=== PATIENT | male | born 1955 | race Caucasian/White ===

== ENCOUNTER → 2017-07-29 | Outpatient (CLI) | payer OTHER ==
[2017-07-29 09:01] LABS: ADD MAN DIFF? NO
[2017-07-29 09:23] LABS: ALBUMIN 3.8 g/dL (3.4-5.0); ANION GAP 5 (6-14); BLOOD UREA NITROGEN 12 mg/dL (8-26); CARBON DIOXIDE 32 mmol/L (21-32); CHLORIDE 97 mmol/L (98-107); CREATININE 0.9 mg/dL (0.7-1.3); GLUCOSE 126 mg/dL (70-99); POTASSIUM 3.7 mmol/L (3.5-5.1); SODIUM 134 mmol/L (136-145)
[2017-07-29 09:29] LABS: BASO % 1 % (0-3); EOS # 0.2 x10^3/uL (0.0-0.7); EOS % 4 % (0-3); HEMATOCRIT 42.5 % (39.0-53.0); HEMOGLOBIN 14.7 g/dL (13.0-17.5); LYMPH # 0.8 x10^3/uL (1.0-4.8); LYMPH % 18 % (24-48); MEAN CORPUSCULAR HEMOGLOBIN 33 pg (25-35); MEAN CORPUSCULAR HGB CONC 35 g/dL (31-37); MEAN CORPUSCULAR VOLUME 96 fL (79-100); MONO # 0.7 x10^3/uL (0.0-1.1); MONO % 15 % (0-9); NEUT # 2.9 x10^3uL (1.8-7.7); NEUT % 63 % (31-73); PLATELET COUNT 229 x10^3/uL (140-400); RED BLOOD COUNT 4.44 x10^6/uL (4.30-5.70); RED CELL DISTRIBUTION WIDTH 12.9 % (11.5-14.5); WHITE BLOOD COUNT 4.6 x10^3/uL (4.0-11.0)
[2017-07-29 09:48] LABS: PARTIAL THROMBOPLASTIN TIME 26 SEC (24-38); PROTHROMBIN TIME PATIENT 12.9 SEC (11.7-14.0)
[2017-07-29 10:04] LABS: BILIRUBIN,URINE NEGATIVE (NEG); CLARITY,URINE CLEAR; COLOR,URINE YELLOW; GLUCOSE,URINE NEGATIVE (NEG); NITRITE,URINE NEGATIVE (NEG); PROTEIN,URINE NEGATIVE (NEG-TRACE)
[2017-07-29 10:38] LABS: RBC,URINE OCC /HPF (0-2); WBC,URINE 0 /HPF (0-4)
[2017-07-29 10:39] LABS: BACTERIA,URINE 0 /HPF (0-FEW); SQUAMOUS EPITHELIAL CELL,UR FEW /LPF
[2017-07-29 11:29] LABS: SEDIMENTATION RATE 3 (0-15)
[2017-07-30 06:18] LABS: MRSA BY PCR Negative (Negative)
== END | disposition home or self-care (01) ==
LOC: SURGPAT 14:31
DX: Z01.818 Encounter for other preprocedural examination (principal); I10 Essential (primary) hypertension; R94.31 Abnormal electrocardiogram [ECG] [EKG]
CPT/HCPCS: 36415; 71046; 80048; 81001; 82040; 82306; 85025; 85610; 85651; 85730; 87641; 93005

== ENCOUNTER 2017-08-13 05:50 | Inpatient (IN) | payer OTHER ==
[2017-08-13] MEDS ORDERED: MELOXICAM 7.5 MG TABLET PO (06:00)
[2017-08-13] MEDS: IV RINGERS,LACTATED 1000ML 1,000 ML IV ×2 (06:41→10:10)
[2017-08-13] MEDS: HYDROcodone/APAP 7.5/325MG 1 TAB TABLET PO (06:42)
[2017-08-13] MEDS ORDERED: LIDOCAINE 1% PF 2 ML VIAL. ID (07:00)
[2017-08-13] MEDS ORDERED: fentaNYL PF VIAL 100 MCG/2 ML VIAL IV ×4 (07:00→10:30)
[2017-08-13] MEDS ORDERED: ONDANSETRON PF 4 MG/2 ML VIAL. IV (07:00)
[2017-08-13] MEDS ORDERED: FAMOTIDINE 20 MG/2 ML VIAL (07:08)
[2017-08-13] MEDS ORDERED: ONDANSETRON PF 4 MG/2 ML VIAL. (07:08)
[2017-08-13] MEDS ORDERED: PROPOFOL 20 ML IV (07:08)
[2017-08-13] MEDS ORDERED: DEXAMETHASONE SOD PHOS 20 MG/5 ML VIAL. (07:08)
[2017-08-13] MEDS ORDERED: LIDOCAINE 1% PF 5 ML VIAL. (07:08)
[2017-08-13] MEDS ORDERED: ROCURONIUM 50 MG/5 ML VIAL. (07:08)
[2017-08-13] MEDS ORDERED: fentaNYL PF VIAL 100 MCG/2 ML VIAL ×2 (07:09→08:08)
[2017-08-13] MEDS ORDERED: MIDAZOLAM HCL/PF 2 MG/2 ML VIAL. (07:09)
[2017-08-13] MEDS: TRANEXAMIC ACID 1,000 MG in IV NS 50ML -- 1ST BAG INJ (07:47)
[2017-08-13] MEDS ORDERED: ePHEDrine PF IN SALINE 50 MG/5 ML DISP.SYRIN IV (07:51)
[2017-08-13] MEDS: VANCOMYCIN 1 GM VIAL. (07:59)
[2017-08-13] MEDS: MORPHINE SULFATE 5 MG, KETOROLAC 30 MG, ROPIVacaine 0.5% PF 60 ML, EPINEPHrine 0.5 MG i... INT ART (07:59)
[2017-08-13] MEDS: TOBRAMYCIN POWDER 1.2 GM VIAL. (07:59)
[2017-08-13] MEDS: TRANEXAMIC ACID 1,000 MG in IV NS 50ML -- 2ND BAG INJ (08:00)
[2017-08-13] MEDS ORDERED: GLYCOPYRROLATE 1 MG/5 ML VIAL. (09:23)
[2017-08-13] MEDS ORDERED: NEOSTIGMINE METHYLSULFATE 5 MG/5 ML SYRINGE. (09:23)
[2017-08-13] MEDS ORDERED: SEVOFLURANE > 120 MINUTES. IH (09:32)
[2017-08-13] MEDS: MORPHINE SULFATE 4 MG/ML DISP.SYRIN. IV ×3 (10:09→10:51)
[2017-08-13] MEDS: PROCHLORPERAZINE 10 MG/2 ML VIAL. IV (10:09)
[2017-08-13] MEDS: IV DEXTROSE 5 %-0.45 % NACL 1,000 ML IV (10:19)
[2017-08-13] MEDS ORDERED: diphenhydrAMINE 50 MG/ML VIAL IV (10:30)
[2017-08-13] MEDS ORDERED: HYDROcodone/APAP 10/325 1 TAB TABLET PO (10:30)
[2017-08-13] MEDS ORDERED: HYDROcodone/APAP 7.5/325MG 1 TAB TABLET PO (10:30)
[2017-08-13] MEDS ORDERED: ZOLPIDEM 5 MG TABLET. PO (10:30)
[2017-08-13] MEDS ORDERED: CALCIUM CARBONATE 500 MG TAB.CHEW PO (10:30)
[2017-08-13] MEDS ORDERED: ACETAMINOPHEN 325 MG TABLET. PO (10:30)
[2017-08-13] MEDS ORDERED: DEXTROSE 50% 25 GM / 50ML DISP.SYRIN. IV (10:30)
[2017-08-13] MEDS ORDERED: MORPHINE SULFATE 4 MG/ML DISP.SYRIN. IV ×3 (10:30)
[2017-08-13] MEDS ORDERED: PROCHLORPERAZINE 10 MG/2 ML VIAL. IV (10:30)
[2017-08-13] MEDS ORDERED: traMADol 50 MG TABLET PO ×2 (10:30)
[2017-08-13] MEDS ORDERED: METOCLOPRAMIDE HCL 10 MG/2 ML VIAL. IV (10:30)
[2017-08-13] MEDS ORDERED: MORPHINE SULFATE 10 MG/ML VIAL. IV (10:30)
[2017-08-13] MEDS ORDERED: PROCHLORPERAZINE 5 MG TABLET. PO (10:30)
[2017-08-13] MEDS ORDERED: oxyCODONE/APAP 5/325 1 TAB TABLET PO (10:30)
[2017-08-13] MEDS ORDERED: NON FORMULARY ITEM (Tadalafil (Cialis) 5 MG) PO (10:30)
[2017-08-13] MEDS ORDERED: 0.9 % SODIUM CHLORIDE 10 ML DISP.SYRIN. IV (10:30)
[2017-08-13] MEDS: LOSARTAN POTASSIUM 50 MG TABLET. PO (11:57)
[2017-08-13] MEDS: amLODIPine BESYLATE 5 MG TABLET PO (11:57)
[2017-08-13] MEDS: hydroCHLOROthiazide 12.5 MG CAPSULE PO (11:57)
[2017-08-13] MEDS: oxyCODONE/APAP 7.5/325 1 TAB TABLET PO ×2 (13:39→21:25)
[2017-08-13] MEDS: CHOLECALCIFEROL (VITAMIN D3) 5,000 UNIT CAPSULE PO (17:28)
[2017-08-13] MEDS: SENNOSIDES/DOCUSATE 8.6/50MG TABLET. PO (17:28)
[2017-08-13] MEDS: FERROUS SULFATE 325 MG TABLET. PO (17:28)
[2017-08-13] MEDS: ASCORBIC ACID 500 MG TABLET PO (17:28)
[2017-08-13] MEDS: KETOROLAC 30 MG, BUPIVACAINE MPF 0.25% 20 ML, EPINEPHrine 0.5 MG in TOTAL VOLUME SYRING... INT ART (17:30)
[2017-08-13] MEDS: ATORVASTATIN CALCIUM 20 MG TABLET PO (21:25)
[2017-08-13] MEDS: ASPIRIN ENTERIC COATED 325 MG TABLET.DR. PO (21:25)
[2017-08-14] MEDS: KETOROLAC 30 MG, BUPIVACAINE MPF 0.25% 20 ML, EPINEPHrine 0.5 MG in TOTAL VOLUME SYRING... INT ART (05:27)
[2017-08-14] MEDS ORDERED: MAGNESIUM HYDROXIDE 2,400 MG/30 ML ORAL.SUSP. PO (06:00)
[2017-08-14 07:22] LABS: HEMATOCRIT 34.5 % (39.0-53.0); HEMOGLOBIN 12.3 g/dL (13.0-17.5); MEAN CORPUSCULAR HEMOGLOBIN 34 pg (25-35); MEAN CORPUSCULAR HGB CONC 36 g/dL (31-37); MEAN CORPUSCULAR VOLUME 95 fL (79-100); PLATELET COUNT 202 x10^3/uL (140-400); RED BLOOD COUNT 3.61 x10^6/uL (4.30-5.70); RED CELL DISTRIBUTION WIDTH 12.9 % (11.5-14.5); WHITE BLOOD COUNT 13.7 x10^3/uL (4.0-11.0)
[2017-08-14] MEDS: FERROUS SULFATE 325 MG TABLET. PO ×2 (08:31→17:15)
[2017-08-14] MEDS: CHOLECALCIFEROL (VITAMIN D3) 5,000 UNIT CAPSULE PO (08:32)
[2017-08-14] MEDS: MULTIVITAMIN with MINERAL TABLET. PO (08:32)
[2017-08-14] MEDS: hydroCHLOROthiazide 12.5 MG CAPSULE PO (08:32)
[2017-08-14] MEDS: SENNOSIDES/DOCUSATE 8.6/50MG TABLET. PO (08:32)
[2017-08-14] MEDS: LOSARTAN POTASSIUM 50 MG TABLET. PO (08:33)
[2017-08-14] MEDS: MELOXICAM 7.5 MG TABLET PO (08:33)
[2017-08-14] MEDS: ASCORBIC ACID 500 MG TABLET PO (08:34)
[2017-08-14] MEDS: ASPIRIN ENTERIC COATED 325 MG TABLET.DR. PO ×2 (08:34→21:00)
[2017-08-14] MEDS: amLODIPine BESYLATE 5 MG TABLET PO (08:34)
[2017-08-14] MEDS: oxyCODONE/APAP 7.5/325 1 TAB TABLET PO ×3 (08:34→17:15)
[2017-08-14] MEDS ORDERED: BISACODYL 10 MG SUPP.RECT. PR (16:00)
[2017-08-14] MEDS: ATORVASTATIN CALCIUM 20 MG TABLET PO (21:00)
[2017-08-15 05:17] LABS: HEMATOCRIT 29.9 % (39.0-53.0); HEMOGLOBIN 10.9 g/dL (13.0-17.5); MEAN CORPUSCULAR HGB CONC 37 g/dL (31-37)
[2017-08-15] MEDS: oxyCODONE/APAP 7.5/325 1 TAB TABLET PO ×3 (05:34→20:32)
[2017-08-15] MEDS: MULTIVITAMIN with MINERAL TABLET. PO (08:14)
[2017-08-15] MEDS: SENNOSIDES/DOCUSATE 8.6/50MG TABLET. PO (08:14)
[2017-08-15] MEDS: FERROUS SULFATE 325 MG TABLET. PO ×2 (08:14→17:11)
[2017-08-15] MEDS: MELOXICAM 7.5 MG TABLET PO (08:15)
[2017-08-15] MEDS: ASPIRIN ENTERIC COATED 325 MG TABLET.DR. PO ×2 (08:15→20:32)
[2017-08-15] MEDS: CHOLECALCIFEROL (VITAMIN D3) 5,000 UNIT CAPSULE PO (08:15)
[2017-08-15] MEDS: ASCORBIC ACID 500 MG TABLET PO (08:15)
[2017-08-15] MEDS: amLODIPine BESYLATE 5 MG TABLET PO (08:16)
[2017-08-15] MEDS: hydroCHLOROthiazide 12.5 MG CAPSULE PO (08:16)
[2017-08-15] MEDS: LOSARTAN POTASSIUM 50 MG TABLET. PO (08:17)
[2017-08-15] MEDS: POLYETHYLENE GLYCOL 3350 17 GM PACKET. PO (15:45)
[2017-08-15] MEDS: BISACODYL 10 MG SUPP.RECT. PR (17:09)
[2017-08-15] MEDS: ATORVASTATIN CALCIUM 20 MG TABLET PO (20:32)
[2017-08-16] MEDS: oxyCODONE/APAP 7.5/325 1 TAB TABLET PO ×4 (04:36→16:23)
[2017-08-16 05:33] LABS: HEMOGLOBIN 10.7 g/dL (13.0-17.5); MEAN CORPUSCULAR HGB CONC 36 g/dL (31-37)
[2017-08-16] MEDS: CHOLECALCIFEROL (VITAMIN D3) 5,000 UNIT CAPSULE PO (08:24)
[2017-08-16] MEDS: hydroCHLOROthiazide 12.5 MG CAPSULE PO (08:24)
[2017-08-16] MEDS: ASPIRIN ENTERIC COATED 325 MG TABLET.DR. PO (08:25)
[2017-08-16] MEDS: amLODIPine BESYLATE 5 MG TABLET PO (08:25)
[2017-08-16] MEDS: SENNOSIDES/DOCUSATE 8.6/50MG TABLET. PO (08:25)
[2017-08-16] MEDS: LOSARTAN POTASSIUM 50 MG TABLET. PO (08:25)
[2017-08-16] MEDS: FERROUS SULFATE 325 MG TABLET. PO (08:26)
[2017-08-16] MEDS: MULTIVITAMIN with MINERAL TABLET. PO (08:26)
[2017-08-16] MEDS: ASCORBIC ACID 500 MG TABLET PO (08:26)
[2017-08-16] MEDS: MELOXICAM 7.5 MG TABLET PO (08:32)
== END 2017-08-16 17:14 | disposition home or self-care (01) | DRG 470 ==
LOC: OPSVCIP 05:50 → 4 SOUTHEST 11:00
PROC: 0SRC0J9 Replacement of Right Knee Joint with Synthetic Substitute, Cemented, Open Approach (ICD-10-PCS; principal; 2017-08-13 07:10)
DX: M17.11 Unilateral primary osteoarthritis, right knee (principal); I10 Essential (primary) hypertension; L40.0 Psoriasis vulgaris; Z80.0 Family history of malignant neoplasm of digestive organs; Z82.3 Family history of stroke; Z83.3 Family history of diabetes mellitus; Z91.048 Other nonmedicinal substance allergy status
CPT/HCPCS: 36415; 73560; 85014; 85018; 85027; 86850; 86900; 86901; 88305; 88311; 97116-GP; 97150-GP; 97161-GP; 97166-GO; 97530-GP; 97535-GO; A7015; C1713; J0171; J0690; J0780; J1100; J1885; J2250; J2270; J2405; J2704; J2710; J2795; J3010; J3260; J3370; J3490; J7120; S0028